=== PATIENT | female | born 1950 | race Two or more races ===

== ENCOUNTER → 2024-04-17 | Outpatient (CLI) | payer OTHER, SELFPAY ==
[2024-04-17 08:30] LABS: Cardiac Risk Estimate 1.9 RATIO (3.7-5.6); Cholesterol 111 mg/dL (132-200); HDL Cholesterol 60 mg/dL (40-60); LDL Cholesterol,Calculated 39 mg/dL (0-130); Triglycerides 59 mg/dL (30-150)
[2024-04-17 08:50] LABS: Glucose Estimated Average 117 mg/dL (80-131); Hemoglobin A1C 5.7 % Hgb (4.8-6.0)
== END | disposition home or self-care (01) ==
LOC: COPL 07:14
PROVIDERS: PCP Family Medicine; Referring Provider Family Medicine; Visit Provider Family Medicine
DX: E11.9 Type 2 diabetes mellitus without complications (principal); E78.2 Mixed hyperlipidemia
CPT/HCPCS: 36415; 80061; 83036

== ENCOUNTER → 2024-07-18 | Outpatient (CLI) | payer OTHER, SELFPAY ==
[2024-07-18 08:37] LABS: Glucose Estimated Average 108 mg/dL (80-131); Hemoglobin A1C 5.4 % Hgb (4.8-6.0)
[2024-07-18 09:47] LABS: Anion Gap 7 (7-16); BUN/Creatinine Ratio 24 Ratio (12-20); Blood Urea Nitrogen 19 mg/dL (9-23); Calcium 9.6 mg/dL (8.3-10.6); Carbon Dioxide 24.5 mMol/L (20.0-31.0); Chloride 113 mMol/L (98-107); Creatinine (Component) 0.8 mg/dL (0.6-1.3); Glucose 101 mg/dL (74-106); Osmolality,Calculated 289 (275-295); Potassium 4.2 mMol/L (3.4-5.1); Sodium 144 mMol/L (136-145); eGFR > 60 See Note
== END | disposition home or self-care (01) ==
LOC: COPL 07:20
PROVIDERS: PCP Family Medicine; Referring Provider Family Medicine; Visit Provider Family Medicine
DX: E11.9 Type 2 diabetes mellitus without complications (principal)
CPT/HCPCS: 36415; 80048; 83036

== ENCOUNTER → 2024-10-16 | Outpatient (CLI) | payer OTHER, SELFPAY ==
[2024-10-16 08:40] LABS: Creatinine MALB Rnd Ur 35 mg/dL (30-125); Microalbumin, Random Urine < 3 mg/L (0-300)
[2024-10-16 08:51] LABS: Glucose Estimated Average 117 mg/dL (80-131); Hemoglobin A1C 5.7 % Hgb (4.8-6.0)
== END | disposition home or self-care (01) ==
LOC: COPL 07:46
PROVIDERS: PCP Family Medicine; Referring Provider Family Medicine; Visit Provider Family Medicine
DX: E11.65 Type 2 diabetes mellitus with hyperglycemia (principal)
CPT/HCPCS: 36415; 82043; 82570; 83036

== ENCOUNTER → 2025-01-16 | Outpatient (CLI) | payer OTHER, SELFPAY ==
[2025-01-16 08:51] LABS: Glucose Estimated Average 123 mg/dL (80-131); Hemoglobin A1C 5.9 % Hgb (4.8-6.0)
== END | disposition home or self-care (01) ==
LOC: COPL 07:17
PROVIDERS: PCP Family Medicine; Referring Provider Family Medicine; Visit Provider Family Medicine
DX: E11.9 Type 2 diabetes mellitus without complications (principal)
CPT/HCPCS: 36415; 83036

== ENCOUNTER → 2025-02-08 | Outpatient (CLI) | payer OTHER, SELFPAY ==
--- NOTE | 2025-02-08 08:45 | XR_ITS ---
Examination: Screening digital mammography, bilateral Computer aided detection 3-D breast Tomosynthesis, bilateral Date and time of exam: February 08, 2025, 0856 hours, compared to mammograms dating to April 18, 2020 Indication: Screening Technique: Nonmagnified MLO, CC views of the breasts to been obtained, reconstructed from 3-D Tomosynthesis images. R2 computer aided detection program utilized for evaluation of suspicious masses and/or abnormal calcifications. 3-D Tomosynthesis images obtained. Findings: Scattered areas of fibroglandular density. Numerous bilateral skin lesions Benign calcifications No interval suspicious masses Impression: BI-RADS category II: Benign Findings. Recommend 1 year follow-up mammogram.
== END | disposition home or self-care (01) ==
LOC: CDIM 08:19
PROVIDERS: Referring Provider Family Medicine; Visit Provider Family Medicine
DX: Z12.31 Encounter for screening mammogram for malignant neoplasm of breast (principal); R92.323 Mammographic fibroglandular density, bilateral breasts; R92.1 Mammographic calcification found on diagnostic imaging of breast
CPT/HCPCS: 77063; 77067

== ENCOUNTER → 2025-03-06 | Outpatient (CLI) | payer OTHER, SELFPAY ==
--- NOTE | 2025-03-06 11:15 | XR_ITS ---
Examination: Retroperitoneal ultrasound, complete Technique: Multiple high resolution grayscale images of the retroperitoneum obtained, including kidneys and bladder. Exam date and time: March 06, 2025, 1106 hours INDICATIONS: Difficulty urinating 6 months FINDINGS: Right kidney 11.5 cm renal cortex 2.0 cm Left kidney 10.2 cm renal cortex 2.4 cm Mild renal scar formation 28 mm upper pole left renal cyst, no renal calculi No bladder mass or bladder calculi Bladder prevoid volume 364 cc postvoid volume 218 cc IMPRESSION: Bilateral mild renal scarring No hydronephrosis or renal calculi
== END | disposition home or self-care (01) ==
PROVIDERS: PCP Family Medicine; Referring Provider Obstetrics & Gynecology Female Pelvic Medicine and Reconstructive Surgery; Visit Provider Obstetrics & Gynecology Female Pelvic Medicine and Reconstructive Surgery
DX: N28.89 Other specified disorders of kidney and ureter (principal)
CPT/HCPCS: 76770